=== PATIENT | female | born 1995 | race Caucasian/White ===

== ENCOUNTER 2024-10-15 13:57 | Emergency (ER) | payer OTHER ==
[~2024-10-15] VITALS: Ht 170.2 cm; Wt 73.5 kg
[~2024-10-15 13:57] MED LIST: BACL5TAB2 PO
[2024-10-15] MEDS: NS (Normal Saline) 0.9% 1,000 ML IV ONE (15:51)
[2024-10-15] MEDS: diphenhydrAMINE 50MG/ML VIAL IV ONE (15:52)
[2024-10-15] MEDS: ACETAMINOPHEN *IV* 1,000 MG in IV 1 EA IV ONE (15:52)
[2024-10-15] MEDS: METOCLOPRAMIDE INJ 10MG/2ML VIAL IV ONE (15:52)
[2024-10-15] MEDS: KETOROLAC 30 MG/ML 1ML VIAL IV ONE (15:52)
[2024-10-15] MEDS ORDERED: ACETAMINOPHEN 325 MG TAB PO PRN (19:40)
[2024-10-15] MEDS ORDERED: KETOROLAC 30 MG/ML 1ML VIAL IV PRN (19:40)
[2024-10-15] MEDS ORDERED: MOM 30ML SUSPENSION UDC PO PRN (19:40)
[2024-10-15] MEDS ORDERED: ADVI200C8 PO (20:46)
[2024-10-15] MEDS ORDERED: HOME MED LIST COMPLETE! XX SCH (20:50)
[2024-10-15] MEDS: LIDOCAINE 5% (LIDODERM) PATCH TD SCH (22:03)
[2024-10-16 11:05] VITALS: BP 122/56; TEMP 97.1; O2SAT 100
== END 2024-10-16 11:15 | disposition home or self-care (01) ==
LOC: EDBD 13:57 → M ED 13:57
DX: R51.9 Headache, unspecified (principal); G98.8 Other disorders of nervous system; Z88.6 Allergy status to analgesic agent; Z91.030 Bee allergy status; Z79.1 Long term (current) use of non-steroidal anti-inflammatories (NSAID); Z79.899 Other long term (current) drug therapy
CPT/HCPCS: 96374; 96375; 97161; 99284; J0131; J1200; J1885; J2765

== ENCOUNTER 2025-03-19 13:54 | Outpatient (RCR) | payer OTHER ==
[~2025-03-19 13:54] MED LIST changes: +ADVI200C8 PO
== END 2025-03-22 ==
LOC: M PT 13:54
PROVIDERS: ATTEND Family Medicine
DX: R49.0 Dysphonia (principal)

== ENCOUNTER → 2025-03-22 | Outpatient (CLI) | payer OTHER | LOC: M WUC 11:46 | PROVIDERS: ATTEND Physician Assistant | DX: R06.02 Shortness of breath (principal) ==

== ENCOUNTER 2025-04-16 11:15 | Outpatient (RCR) | payer OTHER | END 2025-04-22 | LOC: M PT 11:15 | PROVIDERS: ATTEND Family Medicine | DX: R49.0 Dysphonia (principal) ==

== ENCOUNTER 2025-05-14 10:16 | Outpatient (RCR) | payer OTHER | END 2025-05-22 | LOC: M PT 10:16 | PROVIDERS: ATTEND Family Medicine | DX: R49.0 Dysphonia (principal) ==

== ENCOUNTER 2025-06-20 08:50 | Outpatient (RCR) | payer OTHER | END 2025-06-22 | LOC: M PT 08:50 | PROVIDERS: ATTEND Family Medicine | DX: R49.0 Dysphonia (principal); R25.2 Cramp and spasm; R53.1 Weakness ==

== ENCOUNTER → 2025-07-09 | Outpatient (CLI) | payer OTHER | LOC: M RAD 12:31 | PROVIDERS: ATTEND Physician Assistant | DX: R06.02 Shortness of breath (principal) ==

== ENCOUNTER 2025-07-11 09:31 | Outpatient (RCR) | payer OTHER | END 2025-07-22 | LOC: M PT 09:31 | PROVIDERS: ATTEND Family Medicine | DX: R49.0 Dysphonia (principal); R25.2 Cramp and spasm; R53.1 Weakness ==

== ENCOUNTER → 2025-08-22 | Outpatient (RCR) | payer OTHER | LOC: M PT 07-25 09:27 | PROVIDERS: ATTEND Family Medicine | DX: R49.0 Dysphonia (principal) ==